=== PATIENT | female | born 1990 | race Caucasian/White ===

== ENCOUNTER 2017-11-26 13:23 | Emergency (ER) | payer OTHER, SELFPAY ==
[2017-11-26 13:25] VITALS: BP 131/70; PULSE 85; RESP 18; TEMP 36.7; O2SAT 100
--- NOTE | 2017-11-26 13:31 | ED_ITS ---
HPI - Skin/Abscess/Foreign Bdy <Meagan Eldridge PA-C - Last Filed: 11/26/17 16:51> General Chief complaint: Skin/Abscess/Foreign Body Stated complaint: bit by cat on hand Time Seen by Provider: 11/26/17 13:28 Source: patient Mode of arrival: ambulatory Limitations: no limitations History of Present Illness HPI narrative: This 27-year-old female comes in today due to cat bite on her right hand. This occurred on Sunday evening. This was her own cat, fully vaccinated. She also believes that her vaccines including tetanus are all up-to -date since she just left the . She states that she has not had fever, but has had gradually worsening swelling and redness. She states it is difficult to move her finger due to swelling, but she cannot tell that there is any weakness. She states this is not acutely worse than last night but has gotten worse overall since Sunday. She denies any other injuries or complaints Related Data Home Medications Medication Instructions Recorded Confirmed bupropion HCl 1 tab PO DAILY 11/26/17 11/26/17 duloxetine 11/26/17 11/26/17 gabapentin 900 mg PO BEDTIME 11/26/17 11/26/17 loratadine 10 mg PO DAILY 11/26/17 11/26/17 meloxicam 7.5 mg PO DAILY 11/26/17 11/26/17 tretinoin 1 applic TOPICAL DIRECTED 11/26/17 11/26/17 Previous Rx's Medication Instructions Recorded amoxicillin-pot clavulanate 1 tab PO Q12H #14 tab 11/26/17 [Augmentin] Allergies Allergy/AdvReac Type Severity Reaction Status Date / Time cyclobenzaprine Allergy Unknown SWELLING Unverified 08/22/17 12:35 [CYCLOBENZAPRINE] oxycodone [OXYCODONE] Allergy Unknown HALLUCINATI Unverified 08/22/17 12:35 ONS Review of Systems <Meagan Eldridge PA-C - Last Filed: 11/26/17 16:51> Review of Systems All systems reviewed & are unremarkable except as noted in HPI and below Exam <Meagan Eldridge PA-C - Last Filed: 11/26/17 16:51> Narrative Exam Narrative: GENERAL APPEARANCE: Patient sitting comfortably, in no distress. LUNGS: Clear to auscultation bilaterally. HEART: Rate and rhythm regular without murmur, normal S1 and S2, no S3 or S4. DERMATOLOGIC: Right hand pink, slightly warm erythema extending from just distal to the 2nd MCP on the dorsum of the hand not quite to the wrist. This is only on the dorsal surface, does not extend to the medial side. There is a moderate effusion around the puncture wound noted proximal to the 2nd MCP. There are numerous superficial scratches on both forearms MUSCULOSKELETAL: She has slightly reduced range of motion of the right pointer finger, but strength is intact in all amaral against resistance NEUROVASCULAR: Right hand fingers are warm and pink with sensation grossly intact Initial Vital Signs Initial Vital Signs: Vital Signs Temperature 98.1 F 11/26/17 13:25 Pulse Rate 85 11/26/17 13:25 Respiratory Rate 18 11/26/17 13:25 Blood Pressure 131/70 H 11/26/17 13:25 Pulse Oximetry 100 11/26/17 13:25 <Fred Diop DO - Last Filed: 11/26/17 17:10> Initial Vital Signs Initial Vital Signs: Vital Signs Temperature 98.1 F 11/26/17 13:25 Pulse Rate 85 11/26/17 13:25 Respiratory Rate 18 11/26/17 13:25 Blood Pressure 131/70 H 11/26/17 13:25 Pulse Oximetry 100 11/26/17 13:25 Course <Meagan Eldridge PA-C - Last Filed: 11/26/17 16:51> Vital Signs - 8 hr 11/26/17 13:25 Temperature 98.1 F Pulse Rate 85 Respiratory Rate 18 Blood Pressure 131/70 H Pulse Oximetry 100 <Fred Diop DO - Last Filed: 11/26/17 17:10> Vital Signs - 8 hr 11/26/17 13:25 Temperature 98.1 F Pulse Rate 85 Respiratory Rate 18 Blood Pressure 131/70 H Pulse Oximetry 100 Discharge Plan Departure Patient Disposition: Home, Self-Care Clinical Impression: Cat bite involving extremity, Cellulitis Discharge Date/Time: 11/26/17 14:00 Interventions: ED Discharge Assessment Last Done: 11/26/17 13:59 Instructions: DI for Cellulitis -- Adult, DI for Cat Bite Activity Restrictions/Additional Instructions: Return if you have acutely worsening symptoms as we talked about, otherwise you should see your PCP after 48-72 hours on the antibiotics so that your hand function can be reassessed as the swelling started to go down. Please continue your usual naproxen. Add Tylenol as needed. Start the antibiotic as soon as you pick it up Prescriptions: New amoxicillin-pot clavulanate [Augmentin] 875-125 mg tablet 1 tab PO Q12H Qty: 14 RF: 0 No Action tretinoin 0.025 % cream 1 applic Topical DIRECTED RF: 0 meloxicam 7.5 mg tablet 7.5 mg PO DAILY RF: 0 gabapentin 300 mg capsule 900 mg PO BEDTIME RF: 0 loratadine 10 mg tablet 10 mg PO DAILY RF: 0 bupropion HCl 150 mg tablet extended release 24 hr 1 tab PO DAILY RF: 0 duloxetine 20 mg capsule,delayed release(DR/EC) RF: 0 Referrals: Fareed Muñoz [Non-Staff] - <Fred Diop DO - Last Filed: 11/26/17 17:10> Cosign ED Attending Nayla Attestation: I was available for consultation during this patient's emergency department encounter
== END 2017-11-26 14:00 | disposition home or self-care (01) ==
PROVIDERS: Emergency Provider Internal Medicine
DX: S61.451A Open bite of right hand, initial encounter (principal); W55.01XA Bitten by cat, initial encounter; L03.113 Cellulitis of right upper limb
CPT/HCPCS: 99282; 99283

== ENCOUNTER → 2018-07-29 15:53 | Outpatient (CLI) | payer OTHER, SELFPAY ==
--- NOTE | 2018-07-29 | DI.MRI.S_ITS ---
PROCEDURE: MR PELVIS WO/W CON INDICATIONS: Noninflammatory disorder of cervix uteri TECHNIQUE: Coronal HASTE, sagittal breath-hold T2 FSE; axial T1 FSE with and without fat saturation through the pelvis. Optional long- and short-axis uterine nonbreath-hold T2 FSE through the uterus. Sagittal or axial dynamic VIBE during administration of contrast. Post-contrast axial or coronal VIBE/2-D FLASH with fat saturation from the iliac crests to the symphysis. Optional diffusion weighted imaging and ADC may be performed. COMPARISON: [facility], MR, HIP WITH CONTRAST, 12/05/2016, 15:03. FINDINGS: Image quality: Excellent. Uterus: Uterus is normal in size. Endometrium is normal in thickness. Junctional zone is normal in thickness at 12 mm or less. Adnexa: Both ovaries are normal in size, without suspicious cystic or solid lesions. Urinary system: Bladder wall is normal in thickness. Distal ureters are non distended. Urethra appears normal in morphology. Nodes and vessels: No pelvic or inguinal adenopathy by size criteria. Iliac vessels are normal in size. Bowel and peritoneum: No pathologic free pelvic fluid. Inferior colon and small bowel loops are normal in caliber. Soft tissues: No inguinal hernias. No findings of pelvic floor incompetence in the absence of provocation. Bones: Marrow demonstrates normal overall signal. IMPRESSION: Prior comparison studies are not available for review. Presumably transvaginal and transabdominal pelvic ultrasound have been performed. Currently a discrete identifiable lesion suggestive of underlying infection or neoplasm is not found. The ovaries appear normal. No free fluid throughout the peritoneal space is seen. No adenopathy is found. Dictated by: Arley Vitale M.D. on 07/29/2018 at 16:43 Approved by: Arley Vitale M.D. on 07/29/2018 at 17:02
== END ==
PROVIDERS: Visit Provider Obstetrics & Gynecology
DX: N88.9 Noninflammatory disorder of cervix uteri, unspecified (principal)
CPT/HCPCS: 72197; A9579

== ENCOUNTER → 2018-09-16 17:47 | Outpatient (CLI) | payer OTHER, SELFPAY | PROVIDERS: Visit Provider Family Medicine ==

== ENCOUNTER → 2019-02-12 10:17 | Outpatient (CLI) | payer OTHER, SELFPAY ==
--- NOTE | 2019-02-12 10:19 | DI.RAD.S_ITS ---
PROCEDURE: XR CERVICAL SPINE 4V OR 5V INDICATIONS: Cervical spondylosis with radiculopathy TECHNIQUE: 5 views of the cervical spine acquired. COMPARISON: [facility], MR, MR CERVICAL SPINE WO CON, 06/01/2016, 15:36. FINDINGS: Bones: No fractures or dislocations to the C7 level. No definite disc space narrowing. Straightening of the normal lordotic curvature. The oblique projections are suboptimal (under rotated), although suspect minimal diffuse bony foraminal degeneration on both sides. This could be clarified with cervical MRI as clinically necessary. Soft tissues: No prevertebral soft tissue swelling. IMPRESSION: Suboptimal evaluation due to patient positioning on the oblique projections, however suspect diffuse minimal bilateral bony foraminal degeneration. Dictated by: Paulino Bobby M.D. on 02/12/2019 at 11:21 Approved by: Paulino Bobby M.D. on 02/12/2019 at 11:26
== END ==
PROVIDERS: PCP Nurse Practitioner; Visit Provider Physical Medicine & Rehabilitation
DX: M47.22 Other spondylosis with radiculopathy, cervical region (principal)
CPT/HCPCS: 72050

== ENCOUNTER 2019-03-21 09:35 | Outpatient (CLI) | payer OTHER, SELFPAY ==
[2019-03-21] VITALS (9 sets, daily range): BP systolic 89–112; BP diastolic 55–79; PULSE 67–78; RESP 16–20; TEMP 36.3; O2SAT 98–100
--- NOTE | 2019-03-21 09:36 | DI.RAD.S_ITS ---
PROCEDURE: PAIN C/T INTERLAMINAR INJECT INDICATIONS: SPONDYLOSIS FINDINGS: Fluoroscopic spot filming was performed to verify placement of spinal needles at the C6-C7 level(s), as labeled on the films. Appropriate location(s) of the needle tip(s) was confirmed by injection of iodinated contrast. IMPRESSION: Fluoroscopy for pain management. Dictated by: Shaq Batista M.D. on 03/21/2019 at 11:04 Approved by: Shaq Batista M.D. on 03/21/2019 at 11:05
[2019-03-21] MEDS: fentaNYL 100 MCG/2 ML INJ 50 MCG IV (10:23)
[2019-03-21] MEDS: MIDAZOLAM 5 MG/5 ML VIAL IV (10:23)
[2019-03-21] MEDS: LIDOCAINE 1% 20 ML 5 ML INJ (10:29)
[2019-03-21] MEDS: DEXAMETHASONE 10 MG/ML VIAL 30 MG INJ (10:30)
[2019-03-21] MEDS: IOPAMIDOL 15 ML VIAL 3 ML INJ (10:30)
--- NOTE | 2019-03-21 10:34 | PC.NURSE ---
ASSISTING PT OFF TABLE AND TRANSPORTING TO POST PROC AREA IN STABLE CONDITION.
--- NOTE | 2019-03-21 10:41 | PM.PROC.1 ---
Procedures Date/Time Date of procedure: 03/21/19 Time of procedure: 10:41 General Procedure description: PREOP DIAGNOSIS 1. CERVICAL STENOSIS, 2. CERVICAL HNP WITH UPPER EXTREMITY RADICULAR FEATURES, POST OP DIAGNOSIS 1. CERVICAL STENOSIS, 2. CERVICAL HNP WITH UPPER EXTREMITY RADICULAR FEATURES, PROCEDURES 1. FLUORSCOPICALLY GUIDED CONTRAST CONTROLLED INTERLAMINAR EPIDURAL STEROID INJECTION - C6/7 TL CHERI PHYSICIAN: Kamran Brewer DO INDICATIONS Piedad is referred by МАРИНА Williamson for treatment of Cervical HNP with Upper Extremity Paresthesias. FINDINGS Cervical Stenosis due to disc deterioration and nerve root irritation and nerve root irritation DESCRIPTION OF PROCEDURE Fluoroscopically guided, contrast-controlled C6/7 translaminar epidural steroid injection with conscious sedation. Following review of allergy and review of potential side effects and complications, including, but not necessarily limited to, infection, allergic reaction, local tissue breakdown, temporary as well as permanent nerve injury, stroke, paralysis, and possible , the patient indicated that patient understood and agreed to proceed. An informed consent document was signed by the patient, witnessed by a nurse, and placed in the patient's chart. Additionally, other treatment options including modalities, medications, and physical therapy were reviewed with the patient. After review of previous anaesthesic history and IV conscious sedation the patient was deemed safe to proceed with todays procedure with IV conscious sedation as ASA class II designation. Safety time-out was performed to confirm patient ID, procedure to be performed and site of procedure. IV sedation was accomplished with a combination of 2mg of Versed and 50mcg of Fentanyl administered by the RN after DO order, titrated to patient comfort during the course of the procedure while the patient remained responsive to all verbal commands. In the prone position, following sterile prep and drape of the cervical region, the C6/7 translaminar space was identified fluoroscopically. The skin was anesthetized via a 25-gauge 1.5-inch needle with 1% lidocaine solution. At this point, a 25-gauge, 2.5-inch short bevel spinal needle was atraumatically introduced and advanced under fluoroscopic guidance into epidural space at the C6/7 translaminar space. Depth was confirmed on lateral view. Radiological data, including multiple fluoroscopic views of the cervical spine, reveal a spinal needle at the C6/7 translaminar space. Lateral views then show placement of the needle in the epidural space. Subsequent views show contrast material flowing superiorly and inferiorly in the epidural space. DSA fluoroscopy with live contrast injection, once again, confirmed no vascular or intrathecal uptake. At this point, using loss of resistance technique with saline and air, the epidural space was entered. Following negative aspiration, injection of approximately 1.5 cc of Isovue-200 with live fluoroscopy in the AP view confirmed epidural flow in the epidural space without vascular or intrathecal uptake observed. Subsequently, a test dose of 1 cc of 1% lidocaine solution was injected and patient was observed for two minutes without signs or symptoms of complications, including abdominal pain, shortness of breath, bilateral upper or lower extremity weakness, nausea and vomiting, prior to steroid injection. At this point, 2cc or 20mg of dexamethasone was then injected without incident. The patient tolerated the procedure well without signs or symptoms of complications prior to being transferred to the recovery area for further monitoring, The patient was then transferred to the recovery area where they were observed for an appropriate period of time after the injection. The patient reported a VAS score of 6 prior to the procedure and a post-procedure VAS of 0. Total Fluoroscopy Time: 37.0 seconds Total Conscious Time: 24min POST OP INSTRUCTIONS The patient was provided a Pain Log to continue to record their response to the target-specific procedure prior to follow-up visit with the referring provider. Additionally, specific post-injection care instructions and a contact number to our office were provided if concerns arise regarding possible complications associated with the procedure are suspected. Kamran Brewer DO Complications: none
== END 2019-03-21 11:09 | disposition home or self-care (01) ==
LOC: RAD 09:36
PROVIDERS: PCP Nurse Practitioner; Visit Provider Physical Medicine & Rehabilitation
DX: M48.02 Spinal stenosis, cervical region (principal); M50.123 Cervical disc disorder at C6-C7 level with radiculopathy
CPT/HCPCS: 62321; 99152; J1100; J2250; J3010